=== PATIENT | female | born 2000 | race Caucasian/White ===

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

== ENCOUNTER 2019-02-15 21:34 | Emergency (ER) | payer OTHER ==
[2019-02-15 22:15] LABS: Pregnancy Test - Urine (BHCG) Negative (Negative); Pregu Control Background? CLEAR/WHITE (CLR/WHITE); Pregu Control Bar Appear? YES (CONTROL BAR); Specific Gravity 1.026 (1.002-1.036)
[2019-02-15 22:17] LABS: Bilirubin Negative (Negative); Blood, Urine 3+ (Negative); Clarity Clear (Clear); Glucose, Urine (Dipstick) Normal (Negative); Leukocyte 75 Leu/uL (Negative); Nitrite Negative (Negative); Protein, Urine (Dipstick) 20 mg/dL (Neg-Trace); RBC/HPF Greater than 50 HPF (0-3); Urobilinogen Normal mg/dL (Less than 2)
[2019-02-15 22:26] LABS: Bacteria/HPF None Seen HPF (None Seen); Mucous/LPF Rare LPF (<2+)
[2019-02-15] MEDS ORDERED: Ketorolac Tromethamine 60 MG/2 ML VIAL ONE (23:00)
[2019-02-15] MEDS ORDERED: cefTRIAXone\\ROCEPHIN 250 MG VIAL ONE (23:26)
[2019-02-15] MEDS ORDERED: Lidocaine 1% PF 5 ML VIAL ONE (23:29)
[2019-02-15] MEDS ORDERED: Azithromycin 250 MG TAB ONE (23:29)
== END 2019-02-15 23:56 | disposition home or self-care (01) ==
LOC: ERS 21:34
DX: N93.9 Abnormal uterine and vaginal bleeding, unspecified (principal)
CPT/HCPCS: 81003; 81015; 81025; 87086; 87480; 87491; 87510; 87591; 87660; 96372; 99284; J0696; J1885; J2001

== ENCOUNTER 2019-05-11 18:08 | Emergency (ER) | payer OTHER, SELFPAY ==
[2019-05-11 19:11] LABS: Bilirubin Negative (Negative); Blood, Urine Negative (Negative); Clarity Clear (Clear); Glucose, Urine (Dipstick) Normal (Negative); Leukocyte Negative Leu/uL (Negative); Nitrite Negative (Negative); Protein, Urine (Dipstick) Negative (Neg-Trace)
[2019-05-11 20:01] LABS: Pregnancy Test - Urine (BHCG) Negative (Negative); Pregu Control Background? CLEAR/WHITE (CLR/WHITE); Pregu Control Bar Appear? YES (CONTROL BAR); Specific Gravity 1.017 (1.002-1.036)
== END 2019-05-11 20:47 | disposition home or self-care (01) ==
LOC: ERS 18:08
DX: M54.6 Pain in thoracic spine (principal)
CPT/HCPCS: 81003; 81025; 99283

== ENCOUNTER 2019-10-16 21:17 | Emergency (ER) | payer OTHER, SELFPAY ==
[2019-10-16 21:56] LABS: Bacteria/HPF 2+ HPF (None Seen); Bilirubin Negative (Negative); Blood, Urine Negative (Negative); Clarity Clear (Clear); Glucose, Urine (Dipstick) Normal (Negative); Leukocyte 25 Leu/uL (Negative); Nitrite Negative (Negative); Protein, Urine (Dipstick) Negative (Neg-Trace); RBC/HPF 0-3 HPF (0-3); Squamous Epithelial 0-3 HPF (0-3); Urobilinogen Normal mg/dL (Less than 2); WBC/HPF 0-3 HPF (0-3)
[2019-10-16 22:11] LABS: #Eosinphils 0.2 thou/uL (0.0-0.7); #Lymphocytes 2.5 thou/uL (1.20-3.40); #Monocytes 0.6 thou/uL (0.11-0.59); #Neutrophils 6.8 thou/uL (1.40-6.50); %Basophils 0.3 % (0.0-1.0); %Lymphocytes 24.7 % (28.0-48.0); Hemoglobin 8.2 g/dL (12.0-16.0); Mean Corpuscular HGB CONC 31.9 g/dL (32.0-36.0); Mean Corpuscular Volume 65.9 fL (78.0-98.0); Mean Platelet Volume 8.8 fL (7.4-10.4); Platelet Count 186 thou/uL (130-400); RBC Distribution Width 18.7 % (11.5-14.5); Red Blood Cell (RBC) Count 3.89 mill/uL (4.00-5.20); White Blood Cell (WBC) Count 10.1 thou/uL (4.8-10.8)
[2019-10-16 22:32] LABS: ALT (SGPT) 10 U/L (8-55); AST (SGOT) 16 U/L (5-34); Albumin 4.1 g/dL (3.5-5.0); Alkaline Phosphatase 54 U/L (40-100); Anion Gap 11 mmol/L (10-20); BUN (Urea Nitrogen) 6 mg/dL (7.0-18.7); Bilirubin, Total 1.2 mg/dL (0.2-1.2); Calc. Creatinine Clearance 0 mL/min (70-130); Calcium 9.2 mg/dL (7.8-10.44); Carbon Dioxide 25 mmol/L (22-29); Chloride 105 mmol/L (98-107); Estimated GFR-MDRD Greater than 90; Glucose 95 mg/dL (70-105); Potassium 3.8 mmol/L (3.5-5.1); Protein, Total 7.1 g/dL (6.0-8.3); Sodium 137 mmol/L (136-145)
== END 2019-10-16 22:15 | disposition home or self-care (01) ==
LOC: ERS 21:17
DX: O99.89 Other specified diseases and conditions complicating pregnancy, childbirth and the puerperium (principal); R10.2 Pelvic and perineal pain; Z3A.19 19 weeks gestation of pregnancy
CPT/HCPCS: 36415; 80053; 81003; 81015; 84702; 85025; 99284

== ENCOUNTER 2020-02-09 19:26 | Day surgery (SDC) | payer OTHER ==
--- NOTE | 2020-02-09 19:58 | PDOC.FPROB ---
FMR OB H&P: HPI - History of Present Illness Chief Complaint: Chest pain History of Present Illness: Pt is a 19 yo at 36 wga by LMP confirmed with 9.5 wk sono here with complaints of CP and SOB. She states the episode happened earlier this evening around 1800 after she ate. She went to sit down and the chest pain started; 10/10 pressure in her epigastric area that radiated to her chest. The CP caused her to feel SOB and she felt anxious. The episode lasted about 30-35min. She had another episode like this last week that only lasted about 20-25 minutes. She has a hx of GERD and she states that her symptoms have been increasing but that this pain is different than her reflux. She also endorses increased panic attacks that are random, especially in the middle of the night. This episode she had today feels like her panic attacks, except for the fact that it lasted about 20 minutes longer. Sitting down makes the pain worse, focusing on her breathing and warm showers make it better. She denies any other symptoms like LOPEZ, vision changes, diaphoresis, N/V, dysuria, diarrhea, constipation, LOF, VB, VD. Baby is moving well. FMR OB H&P: Current - Care : 2 Para: 1 Gestational age: 36 Due date: 03/08/2020 Dating Criteria: LMP confirmed with 9.5wk sono - OB Labs Blood type: O RH: positive Antibody Screen: negative HIV: negative RPR: negative HepBsAg: negative Rubella: immune Gonorrhea: negative Chlamydia: negative 1 hour gtt: 86/110/99 A1c: 5.2 H&H: 7.1/23.3 Platelets: 200 FMR OB H&P: History - Past Medical History PMH: B Thalassemia - OB History OB History: Low lying placenta- 1.3 cm away from cervix on 12/04/19; OK for vaginal delivery if lower placental edge >20 mm from internal cervical os EFW 45% Previous delivery in 2018: Born via at 40wga complicated by 2nd degree perineal lac, gHTN, prolonged labor >20hours. 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: Menarche 11 yo LMP 06/02/2019 - Surgical History Sx History: Denies - Social History Social History: Denies - Family History Family History: Denies other than history of Beta thalassemia FMR OB H&P: Medications - Current Home Medications: Medication Instructions Recorded Confirmed Type Vit No.130/Iron/Folic 1 tab PO DAILY 02/12/17 02/09/20 History [ Tablet] Famotidine [Pepcid] 20 mg PO BID 30 Days #60 tab 02/09/20 Rx hydrOXYzine [Atarax] 25 mg PO PRN PRN 30 Days #120 tab 02/09/20 Rx Allergies/Adverse Reactions: Allergies Allergy/AdvReac Type Severity Reaction Status Date / Time No Known Allergies Allergy Verified 06/16/17 03:23 FMR OB H&P: ROS - Review of Systems General: denies: fever/chills, weight/appetite/sleep changes, fatigue Eyes: denies: vision changes Cardiovascular: reports: chest pain. denies: palpitation, edema Respiratory: reports: shortness of breath. denies: cough, congestion, exercise intolerance Gastrointestinal: denies: abdominal pain, indigestion, bloating, cramping, nausea, vomiting, diarrhea, constipation Genitourinary (Female): denies: dysuria, vaginal discharge, vaginal pain, vaginal bleeding, vaginal pressure Neurologic: denies: weakness, loss of counsciousness, headache Integumentary: denies: itching, rash Psychological: reports: anxiety FMR OB H&P: Vital Signs - Maternal Vital signs: Bp 110/76 HR 85 - Heart Tones Baseline: 130 Variability: moderate Acceleration: present Deceleration: absent Category: category 1 FMR OB H&P: Physical Exam - Physical Exam General: NAD, awake, alert and oriented HEENT: normocephalic and atraumatic, EOMI, MMM, conjunctiva clear Neck: supple, FROM Chest: non-tender to palpation Breast: symmetric, non-tender Heart: RRR, normal S1/S2, no murmurs/rubs/gallops, pulses present, no edema General: CTAB, no respiratory distress, good air movement Abdomen: soft, gravid, non-tender Musculoskeletal: pulses present, FROM in all four extremities Neurological: no focal deficit Skin: no rash, good tugor, capillary refill <2 seconds Lymphatic: no unusual bruising or bleeding Psychiatric: intact recent and remote memory, good judgement and insight, normal mood and affect FMR OB H&P: A/P Disposition: Pt is a 19 yo at 36 wga by LMP confirmed with 9.5 wk sono here with complaints of CP and SOB 1. Anxiety/Panic Attacks -episodes of CP with associated SOB feel the same as her panic attacks, just longer in duration -will send in Rx for Atarax PRN 2. -36wga by LMP confirmed with 1T sono -findings of low lying placenta followed by MFM: ok for vaginal delivery if 20mm from internal os -previous complaints of GERD on Pepcid 20 mg daily, will send in Rx for Pepcid 20mg BID as some of her pain could be 2/2 GERD 3. Beta thalassemia minor -aware, being monitored by [facility] Follow up with [facility] at next scheduled visit next week. ER labor precautions given. All questions and concerns addressed. Discussion: Date/Time: 02/09/201956 This H&P was discussed with Dr. Camacho and Dr. Dominguez who agree with the above documentation and plan. Addendum - Attending - Attending Attestation Date/Time: 02/09/20 0756 I personally evaluated the patient and discussed the management with Drs. Murphy and Doug. I agree with the History, Examination, Assessment and Plan documented above.
[2020-02-09 20:01] VITALS: BMI 39.5
== END 2020-02-09 21:10 | disposition home or self-care (01) ==
LOC: L&D/OP 19:26
PROVIDERS: ATTEND Obstetrics & Gynecology
DX: O99.891 Other specified diseases and conditions complicating pregnancy (principal); R07.9 Chest pain, unspecified; R06.02 Shortness of breath; O99.342 Other mental disorders complicating pregnancy, second trimester; F41.0 Panic disorder [episodic paroxysmal anxiety]; O44.43 Low lying placenta NOS or without hemorrhage, third trimester; O99.013 Anemia complicating pregnancy, third trimester; D56.3 Thalassemia minor; Z3A.36 36 weeks gestation of pregnancy

== ENCOUNTER 2020-02-15 11:19 | Inpatient (IN) | payer OTHER ==
[~2020-02-15 11:19] MED LIST: Bupivacaine 0.25% HCL 30 ML VIAL ONE; Bupivacaine/Epinephrine 0.25% 30 ML VIAL ONE
[2020-02-15] MEDS ORDERED: hydrALAZINE 20 MG/ML VIAL SLOW IVP PRN ×2 (12:36→14:49)
--- NOTE | 2020-02-15 12:38 | PDOC.FPROB ---
FMR OB H&P: HPI - History of Present Illness Chief Complaint: sent from [facility] History of Present Illness: 19yo at 36.6 WGA by LMP c/w 9.5w US. Presents from [facility] after having BPP there 08/07. Center was called and reported over phone points were taken off for basically no fluid and tone. Pt is asymptomatic and doing well with no complaints. She denies LOF/VB/discharge/contractions, endorses good mvmt. Primary Care Physician: Imelda Pozo FMR OB H&P: Current - Care : 2 Para: 1001 Gestational age: 36.3 Dating Criteria: LMP c/w 9.5w US Course/Complications: Placenta 1.3cm from cervix on November - OB Labs Blood type: O RH: positive Antibody Screen: negative HIV: negative RPR: negative HepBsAg: negative Rubella: immune Gonorrhea: negative Chlamydia: negative 1 hour gtt: 86/110/99 A1c: 5.2 GBS: unknown (collected yesterday) Platelets: 7.1/23.3 Additional labs: platelets: 200 FMR OB H&P: History - Past Medical History PMH: Anemia Beta Thalassemia - OB History OB History: Low lying placenta - 1.3cm from cervix on 12/04/2019. 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: LMP06/02/19 - Surgical History Sx History: none - Social History Social History: denies TAD - Family History Family History: b-thalassemia FMR OB H&P: Medications - Current Home Medications: Medication Instructions Recorded Confirmed Type Vit No.130/Iron/Folic 1 tab PO DAILY 02/12/17 02/15/20 History [ Tablet] Famotidine [Pepcid] 20 mg PO BID 30 Days #60 tab 02/09/20 02/15/20 Rx hydrOXYzine [Atarax] 25 mg PO PRN PRN 30 Days #120 tab 02/09/20 02/15/20 Rx Allergies/Adverse Reactions: Allergies Allergy/AdvReac Type Severity Reaction Status Date / Time No Known Allergies Allergy Verified 02/15/18 03:23 FMR OB H&P: ROS - Review of Systems General: denies: fever/chills, fatigue Eyes: denies: eye pain, vision changes ENT: denies: nasal congestion, rhinorrhea Cardiovascular: denies: chest pain, palpitation Respiratory: denies: cough, congestion Gastrointestinal: denies: abdominal pain, indigestion Genitourinary (Female): denies: incontinence, dysuria Musculoskeletal: denies: pain, stiffness Neurologic: denies: numbness, syncope Integumentary: denies: itching, rash Endocrine: denies: cold intolerance, heat intolerance Hematologic/Lymphatic: denies: prolonged or excessive bleeding Psychological: denies: depression, anxiety FMR OB H&P: Vital Signs - Maternal Vital signs: Vital Signs - First Documented Temp Resp 98.2 F 18 02/15/20 12:21 02/15/20 12:21 FMR OB H&P: Physical Exam - Physical Exam General: NAD, awake, alert and oriented HEENT: normocephalic and atraumatic, EOMI, MMM Neck: supple, trachea midline Chest: non-tender to palpation Breast: symmetric Heart: RRR, normal S1/S2 General: CTAB, no respiratory distress Abdomen: soft, gravid Musculoskeletal: pulses present, no misalignment/asymmetry, no atrophy Skin: no rash, good tugor Lymphatic: no unusual bruising or bleeding, no purpura Psychiatric: intact recent and remote memory, good judgement and insight FMR OB H&P: A/P - Problem List (1) Anemia in , delivered, current hospitalization Current Visit: No Status: Acute Code(s): O99.02 - ANEMIA COMPLICATING CHILDBIRTH Discussion: Date/Time: 02/15/20 1238 Pt is a 19 yo at 36.6 wga by LMP confirmed with 9.5 wk sono here with complaints of CP and SOB IUP, BPP 4/8 -called [facility] points taken off for basically no fluid and tone. -36.6wga by LMP confirmed with 1T sono -findings of low lying placenta followed by MFM: ok for vaginal delivery if 20mm from internal os. Will repeat US for placentation and presentation -plan to deliver vaginally if possible pending US results Anemia 2/2 Beta thalassemia minor -Hgb 7.1 in Late october. Pt was and is asymptomatic -aware, being monitored by [facility] Addendum - Attending - Attending Attestation Date/Time: 02/15/20 4010 I personally evaluated the patient and discussed the management with Dr. Canas. I agree with the History, Examination, Assessment and Plan documented above.
--- NOTE | 2020-02-15 13:43 | ULT ---
US OB Ltd History: Evaluate for presentation and placenta location Comparison: None. Findings: Real-time grayscale, color and spectral analysis of the gravid uterus was performed. Single viable intrauterine with cephalic presentation and poorly visualized likely posterio r placenta. Heart rate documented at 117 bpm. Minimal amniotic fluid. Impression: 1. Cephalic presentation. 2. Poorly visualized placenta with minimal amniotic fluid.
[2020-02-15] MEDS ORDERED: NS / Oxytocin 40 units/1000ml 1,000 ML IV PRN ×2 (14:43→19:29)
[2020-02-15] MEDS ORDERED: Lidocaine 1% (PF) 30 ML VIAL SC PRN ×2 (14:43→19:29)
[2020-02-15] MEDS ORDERED: Ondansetron PF 4 MG/2 ML Vial IVP PRN (14:49)
--- NOTE | 2020-02-15 15:05 | PDOC.LDPN ---
Labor & Delivery Progress Note - Subjective Subjective: comfortable - Objective General: NAD, resting Uterine fundus: non tender Dilation: 1 Effacement: 50% Station: -3 - Assessment (1) Anemia in , delivered, current hospitalization Code(s): O99.02 - ANEMIA COMPLICATING CHILDBIRTH Current Visit: No Status: Acute -: Spoke with [facility], Dr. Price, who verified that most recent US was 01/15/2020 and pts placenta was posterior and 3.8cm from cervix Cervix is not favorable. Considering questionable placenta will opt for OCT before trying cytotec. Addendum - Attending - Attending Attestation Date/Time: 02/15/20 0617 I personally evaluated the patient and discussed the management with Dr. Canas. I agree with the History, Examination, Assessment and Plan documented above.
[2020-02-15 15:58] VITALS: BMI 41.0
[2020-02-15 16:32] LABS: Hemoglobin 8.7 g/dL (12.0-16.0); Mean Corpuscular HGB CONC 33.2 g/dL (32.0-36.0); Mean Corpuscular Hemoglobin 22.3 pg (27.0-31.0); Mean Corpuscular Volume 67.2 fL (78.0-98.0); Mean Platelet Volume 9.2 fL (7.4-10.4); Platelet Count 169 thou/uL (130-400); RBC Distribution Width 16.9 % (11.5-14.5); White Blood Cell (WBC) Count 10.7 thou/uL (4.8-10.8)
[2020-02-15] MEDS: NS w/ Oxytocin 10 units 500 ML IV SCH (17:00)
[2020-02-15 17:04] LABS: HBSAg Index 0.19 S/CO (0-0.99); Hep B Surf Ag Non-Reactive S/CO (NonReactive)
[2020-02-15 17:05] LABS: Syphilis Antibody Nonreactive (Nonreactive); Syphilis Antibody Index 0.04 S/CO (<1.00 Non-Reactive)
--- NOTE | 2020-02-15 19:03 | PDOC.BPN ---
<Nereida Mari - Last Filed: 02/15/20 19:00> - Brief Progress Note Encounter Date: 02/15/20 Encounter Time: 19:00 Check s/p start of Pitocin administration for OCT. FHT cat 1 with baseline ~125, mod variability, accels, and no decels. BP 99-119/56/64. HR 71-88. She has had more than 3 ctx within 10 min and FHT remains cat 1, so we will stop Pitocin and start cytotec within 1 hr. Plan discussed with Dr. Dominguez, who agrees. <Manny Dominguez - Last Filed: 02/15/20 21:03> Addendum - Attending - Attending Attestation Date/Time: 02/15/202101 I personally evaluated the patient and discussed the management with Dr. Bar. I agree with the Assessment and Plan documented above.
[2020-02-15] MEDS: Butorphanol Tartrate 1 MG/ML VIAL SLOW IVP PRN (19:28)
[2020-02-15] MEDS ORDERED: Penicillin G Potassium 5 MILL.UNITS in Sodium Chloride 0.9% 100 ML IVPB SCH (19:30)
[2020-02-15] MEDS: Misoprostol 100 MCG TAB VAG SCH (20:28)
--- NOTE | 2020-02-15 22:41 | PDOC.BPN ---
<Nereida Mari - Last Filed: 02/16/20 00:22> - Brief Progress Note Encounter Date: 02/15/20 Encounter Time: 22:30 FHT check at 2100 s/p admin of cytotec at 2029. Cervical check at 2029: 40/-3 FHT: baseline ~125 with moderate variability, multiple accels, 1 early decel?, multiple variables at 2100? Vitals: BP 106-114/60. HR 63-73 Ctx q2-5min Pt endorsing significant pain with ctx and Stadol was given at 1940. Nurse is concerned the decels are 2/2 Stadol administration. Variables occurred while pt was laying flat on her back. The nurse repositioned her and gave her a fluid bolus and the variables resolved. The pt has not been on her back again and has not received Stadol again, and the variables have not repeated. This was discussed with Dr. Dominguez and he also inspected the strip. Since the FHT has returned to cat 1 and there were multiple variables that could have induced the decels, he is not concerned at this time. The plan is to administer a second dose of cytotec at about 0230 and recheck cervix at that time. <Manny Dominguez - Last Filed: 02/16/20 01:25> Addendum - Attending - Attending Attestation Date/Time: 02/16/20 0124 I personally evaluated the patient and discussed the management with Dr. Bar. I agree with the Assessment and Plan documented above.
[2020-02-16] MEDS: Meperidine HCl/PF 25 MG/ML VIAL SLOW IVP PRN ×2 (00:21→05:35)
[2020-02-16] MEDS: Promethazine HCl 25 MG/ML VIAL IM PRN ×2 (00:22→05:34)
[2020-02-16] MEDS: Penicillin G 2.5 MILL.units 2.5 MILL.UNITS in Premix Bag 1 BAG IVPB SCH ×4 (00:28→21:23)
--- NOTE | 2020-02-16 02:42 | PDOC.BPN ---
<Nereida Mari - Last Filed: 02/16/20 02:39> - Brief Progress Note Encounter Date: 02/16/20 Encounter Time: 02:35 Labor check: 2/75/-2, now mid-position and moderately firm Vitals: BP 107-120/54-65. HR 72-80. FHT continues to be cat 1 with baseline of ~130, moderate variability, several accels, no decels. Ctx are occurring q1-4min so we will not place another cytotec yet. If her ctx space out we will start pit. This was discussed with Dr. Dominguez, who agrees with the plan. <Manny Dominguez - Last Filed: 02/16/20 07:16> Addendum - Attending - Attending Attestation Date/Time: 02/16/20 0715 I personally evaluated the patient and discussed the management with Dr. Bar. I agree with the Assessment and Plan documented above.
[2020-02-16] MEDS: Butorphanol Tartrate 1 MG/ML VIAL SLOW IVP PRN (02:58)
[2020-02-16] MEDS: Lactated Ringer's 1,000 ML IV SCH ×4 (03:00→21:22)
--- NOTE | 2020-02-16 06:24 | PDOC.BPN ---
<Nereida aMri - Last Filed: 02/16/20 06:27> - Brief Progress Note Encounter Date: 02/16/20 Encounter Time: 06:00 Labor check: /-2 Ctx q1-3min Vitals: BP 100-122/60-99. HR 60-99 FHT cat 1: /-2 She has not yet had an epidural but has been complaining frequently of pain and she does desire an epidural so it will likely be given soon. She has only received one dose of cytotec at 2030 but was bacilio too often for another dose. The plan now is to start her on pitocin and recheck in about 4hrs. <Manny Dominguez - Last Filed: 02/16/20 07:17> Addendum - Attending - Attending Attestation Date/Time: 02/16/20 0716 I personally evaluated the patient and discussed the management with Dr. Bar. I agree with the Assessment and Plan documented above.
[2020-02-16] MEDS ORDERED: FLU VACC QS2020-21(6MOS UP)/PF 60 MCG/0.5 ML SYRINGE IM ONE (09:00)
[2020-02-16] MEDS ORDERED: Fentanyl 4 mcg/Bup 0.1% Cadd 100 ML ONE ×3 (09:12→21:49)
[2020-02-16] MEDS: Fentanyl 4 mcg/Bupivacaine 0.1% Cassette 100 ML EPIDURAL SCH ×3 (09:54→21:54)
--- NOTE | 2020-02-16 10:04 | PDOC.LDPN ---
Labor & Delivery Progress Note - Subjective Subjective: comfortable, no concerns - Objective Vital signs reviewed and normal: yes General: NAD Dilation: 2 Effacement: 75% (80) Station: -2 FHT: category 1, variability present [place] contractions every: 3-4min, spaced out to 2 every 10 min Plan: continue plan of care -: Pt is a 19 yo at 37 wga by LMP confirmed with 9.5 wk sono here who was sent over from [facility] for BPP 08/07 (decreased for tone and oligo). IUP, BPP 08/0750/-3 02/14 @ 1430 OTC test 02/14: 3cxn in 10 minutes, NST reactive, pit was stopped OCT started 1600, 3 cxn in 10 minutes, NST reactive, stop pit Cytotec given at 2030, Cat 1 140/-3 @ 2100, Cat 1 275/-2 @ 0230, Cat 1 280/-2 @ 0530 pit started at 0600 2/80/-2 @ 0845 pit at 2 FHTs: Cat I strip, moderate variability, + accels, - decels, bacilio every 3-5 min - plan to continue to titrate pit up as tolerated, will recheck in 2 hours, if cervical change, patient will get epidural and then plans to AROM and place IUPC afte epidural Anemia 2/2 Beta thalassemia minor -Hgb 7.1 in Late october. Pt was and is asymptomatic -Type and Screen and 2u ordered
[2020-02-16] MEDS ORDERED: diphenhydrAMINE 50 MG/ML VIAL IVP PRN (10:13)
[2020-02-16] MEDS ORDERED: Lactated Ringer's 500 ML IV PRN (10:13)
[2020-02-16] MEDS ORDERED: Ondansetron PF 4 MG/2 ML Vial IVP PRN (10:13)
[2020-02-16] MEDS ORDERED: EPHEDRINE 25 MG/5 ML SYRINGE SLOW IVP PRN (10:13)
[2020-02-16] MEDS ORDERED: Naloxone HCl 0.4 mg/ml Vial IVP PRN ×2 (10:13)
[2020-02-16] MEDS ORDERED: Promethazine HCl 25 MG/ML VIAL IM PRN (10:13)
[2020-02-16] MEDS ORDERED: Acetaminophen 325 MG TAB PO PRN (10:13)
[2020-02-16] MEDS ORDERED: Communication Order-Pharmacy FS SCH (10:15)
--- NOTE | 2020-02-16 11:38 | PDOC.LDPN ---
Labor & Delivery Progress Note - Subjective Subjective: comfortable - Objective General: NAD Dilation: 3 Effacement: 75% (80) Station: -2 FHT: category 1, variability present [place] contractions every: 3-4 min AROM: clear fluid IUPC placed: yes FSE placed: yes Plan: continue plan of care -: Pt is a 19 yo at 37 wga by LMP confirmed with 9.5 wk sono here who was sent over from [facility] for BPP 08/07 (decreased for tone and oligo). IUP, BPP 08/07 150/-3 02/14 @ 1430 OTC test 02/14: 3cxn in 10 minutes, NST reactive, pit was stopped OCT started 1600, 3 cxn in 10 minutes, NST reactive, stop pit Cytotec given at 2030, Cat 1 140/-3 @ 2100, Cat 1 275/-2 @ 0230, Cat 1 280/-2 @ 0530 pit started at 0600 280/-2 @ 0845 pit at 2 3/80/-2 @ 1115, AROM done and FSC and IUPC placed FHTs: Cat I strip, moderate variability, + accels, - decels, bacilio every 3-5 min - plan to continue augmentation of labor, continue to titrate pitocin, will recheck in 2 hours Anemia 2/2 Beta thalassemia minor -Hgb 7.1 in Late october. Pt was and is asymptomatic -Type and Screen and 2u ordered GBS Unknown Prior GBS negative -has received 3u pen G -stopped pen G now due to no risk factors. We will continue to monitor and restart if indicated
--- NOTE | 2020-02-16 13:22 | PDOC.LDPN ---
Labor & Delivery Progress Note - Subjective Subjective: comfortable - Objective Vital signs reviewed and normal: yes General: NAD Uterine fundus: non tender SVE: / FHT: category 1, variability present [place] contractions every: 2-3 mins Plan: continue plan of care, pitocin for augmentation -: Pt is a 19 yo at 37 wga by LMP confirmed with 9.5 wk sono here who was sent over from [facility] for BPP 08/07 (decreased for tone and oligo). IUP, BPP 08/07 150/-3 02/14 @ 1430 OTC test 02/14: 3cxn in 10 minutes, NST reactive, pit was stopped OCT started 1600, 3 cxn in 10 minutes, NST reactive, stop pit Cytotec given at 2030, Cat 1 1/40/-3 @ 2100, Cat 1 2/75/-2 @ 0230, Cat 1 2/80/-2 @ 0530 pit started at 0600 2/80/-2 @ 0845 pit at 2 3/80/-2 @ 1115, AROM done and FSC and IUPC placed 0 @1320-pit at 14 FHTs: Cat I strip, moderate variability, + accels, - decels, bacilio every 2-3 min - plan to continue augmentation of labor, continue to titrate pitocin, will recheck in 2 hours Anemia 2/2 Beta thalassemia minor -Hgb 7.1 in Late october. Pt was and is asymptomatic -Type and Screen and 2u ordered GBS Unknown Prior GBS negative -has received 3u pen G -stopped pen G now due to no risk factors. We will continue to monitor and restart if indicated
--- NOTE | 2020-02-16 15:17 | PDOC.LDPN ---
Labor & Delivery Progress Note - Subjective Subjective: comfortable - Objective Vital signs reviewed and normal: yes General: NAD Uterine fundus: non tender SVE: /0 FHT: category 1, variability present [place] contractions every: 2-3 mins, spaces out to 5-7 mins at times Plan: continue plan of care, pitocin for augmentation -: Pt is a 19 yo at 37 wga by LMP confirmed with 9.5 wk sono here who was sent over from [facility] for BPP 08/07 (decreased for tone and oligo). IUP, BPP 08/07 150/-3 02/14 @ 1430 OTC test 02/14: 3cxn in 10 minutes, NST reactive, pit was stopped OCT started 1600, 3 cxn in 10 minutes, NST reactive, stop pit Cytotec given at 2030, Cat 1 140/-3 @ 2100, Cat 1 275/-2 @ 0230, Cat 1 280/-2 @ 0530 pit started at 0600 2/80/-2 @ 0845 pit at 2 3/80/-2 @ 1115, AROM done and FSC and IUPC placed /0 @1320-pit at 14 5/90/0 @ 1515 - pit @ 18 FHTs: Cat I strip, moderate variability, + accels, - decels, bacilio every 2-3 min - plan to continue augmentation of labor, continue to titrate pitocin, will recheck in 2 hours Anemia 2/2 Beta thalassemia minor -Hgb 7.1 in Late october. Pt was and is asymptomatic -Type and Screen and 2u ordered GBS Unknown Prior GBS negative -has received 3u pen G -stopped pen G now due to no risk factors. We will continue to monitor and restart if indicated
[2020-02-16 15:46] LABS: SARS-CoV-2 MS2 Positive; SARS-CoV-2 N Gene Negative; SARS-CoV-2 S Gene Negative; SARS-CoV-2 by NAA Not Detected (NotDetected); SARS-CoV-2 orf1ab Negative
[2020-02-16] MEDS: Misoprostol 100 MCG TAB VAG SCH (19:07)
--- NOTE | 2020-02-16 19:27 | PDOC.LDPN ---
Labor & Delivery Progress Note - Subjective Subjective: comfortable - Objective Vital signs reviewed and normal: yes General: NAD Dilation: 6 Effacement: 90% Station: 0 FHT: category 1 [place] contractions every: 3-4 min IUPC placed: yes FSE placed: yes Plan: other (Faculty: Patient seen and OB care addressed) -: sIUP IOL 2/2 to BPP /8 on 02/14 - 1/50/-3 02/14 @ 1430 - OCT test 02/14: 3cxn in 10 minutes, NST reactive, pit was stopped - OCT started 1600, 3 cxn in 10 minutes, NST reactive, stop pit - Cytotec given at 2030, Cat 1 - /40/-3 @ 2100, Cat 1 - 75/-2 @ 0230, Cat 1 - 80/-2 @ 0530 - pit started at 0600 - 2/80/-2 @ 0845 pit at 2 - 3/80/-2 @ 1115, AROM done and FSC and IUPC placed - 4/90/0 @1320-pit at 14 - 5/90/0 @ 1515 - pit @ 18 - 6/90/0 @ 1715 - 6/90/0 @ 1900 pit @ 20, adequate contractions, adequate MVUs - FHTs: Cat I strip, baseline 130s, moderate variability, + accels, - decels - [place]co: q3-4 min - PLAN: will check again in 2 hours (2100), if unchanged with likely call failure to progress Anemia 2/2 Beta thalassemia minor -Hgb 7.1 in Late october. Pt was and is asymptomatic -Hgb 8.7 on admission -Type and Screen and 2u ordered GBS Unknown Prior GBS negative -has received 3u pen G -stopped pen G now due to no risk factors. We will continue to monitor and restart if indicated Plan discussed with Dr. Asif.
[2020-02-16] MEDS: NS w/ Oxytocin 10 units 500 ML IV SCH (19:54)
--- NOTE | 2020-02-16 21:52 | PDOC.LDPN ---
Labor & Delivery Progress Note - Subjective Subjective: comfortable - Objective Vital signs reviewed and normal: yes General: NAD Dilation: 7 Effacement: 90% Station: 0 FHT: category 1, early decelerations Bonnie contractions every: 3-4 min IUPC placed: yes -: sIUP IOL 2/2 to BPP 08/07 on 02/14 - 1/50/-3 02/14 @ 1430 - OCT test 02/14: 3cxn in 10 minutes, NST reactive, pit was stopped - OCT started 1600, 3 cxn in 10 minutes, NST reactive, stop pit - Cytotec given at 2030, Cat 1 - 40/-3 @ 2100, Cat 1 - 75/-2 @ 0230, Cat 1 - 80/-2 @ 0530 - pit started at 0600 - 80/-2 @ 0845 pit at 2 - /80/-2 @ 1115, AROM done and FSC and IUPC placed - /0 @1320-pit at 14 - /90/0 @ 1515 - pit @ 18 - 6/90/0 @ 1715 - 6/90/0 @ 1900 pit @ 20, adequate contractions, adequate MVUs - /90/0 @ 2100, cervix stripped with recheck /0, pit at 8 - FHTs: Cat I strip, baseline 130s, moderate variability, + accels, early decels, 1 variable decel - toco: q3-4 min - PLAN: will continue to monitor FHTs and check again in 2 hours (2300); if unchanged at this time, we will likely perform section for arrest of labor. Risks and benefits were discussed with patient. 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 Pt was and is asymptomatic -Hgb 8.7 on admission -Type and Screen and 2u ordered GBS Unknown Prior GBS negative -has received 3u pen G -stopped pen G now due to no risk factors. We will continue to monitor and restart if indicated Plan discussed with Dr. Asif.
[2020-02-16] MEDS: NS / Oxytocin 40 units/1000ml 1,000 ML IV SCH (23:08)
--- NOTE | 2020-02-16 23:18 | PDOC.OPDEL ---
OB Operative/Delivery Note Delivery Dr/Surgeon: Yefri Assist: None Pre-Delivery Diagnosis: active labor, medically indicated induction (Oligo with low BPP at 37 weeks 0 days; Beta Thal minor) Procedure/Post Delivery Dx: spontaneous vaginal delivery Weeks gestation: 37 Anesthesia: epidural - Additional Findings/Plan Placenta delivered: spontaneous (hancock at 2308; baby at 2304) Repaired Obstetrical Laceration: none Estimated blood loss: 300 (EBL only as not connected for QBL due to precipitous delivery in bed Compilations/Other Findings: I arrived just as baby was about to deliver. This was within 2 hrs from my last exam where I stripped her membranes. No NC. 3 vc on cord inspection. Placenta sent to path for oligo. baby with spont cry. No lacs. All counts correct Post delivery plan: routine recovery
[2020-02-16] MEDS ORDERED: Misoprostol 200 MCG TAB ONE (23:25)
[2020-02-16] MEDS ORDERED: Misoprostol 200 MCG TAB PR SCH (23:30)
--- NOTE | 2020-02-16 23:36 | PDOC.BPN ---
- Brief Progress Note Encounter Date: 02/16/20 Encounter Time: 23:30 Patient has passed some clots PVB. No persistent VB. Cytotec [address] Ross
[2020-02-17] MEDS ORDERED: Milk Of Magnesia 30 ML UDCUP PO PRN (00:42)
[2020-02-17] MEDS ORDERED: Bisacodyl 10 MG SUPP PR PRN (00:42)
[2020-02-17] MEDS ORDERED: hydrALAZINE 20 MG/ML VIAL SLOW IVP PRN (00:42)
[2020-02-17] MEDS: NS / Oxytocin 40 units/1000ml 1,000 ML IV SCH (01:12)
[2020-02-17] MEDS: Ibuprofen 800 MG TAB PO SCH ×3 (01:31→17:08)
[2020-02-17] MEDS: Misoprostol 100 MCG TAB VAG SCH (02:37)
[2020-02-17] MEDS: Penicillin G 2.5 MILL.units 2.5 MILL.UNITS in Premix Bag 1 BAG IVPB SCH (02:38)
[2020-02-17 06:48] LABS: #Lymphocytes 1.9 thou/uL (1.20-3.40); #Monocytes 0.8 thou/uL (0.11-0.59); #Neutrophils 10.3 thou/uL (1.40-6.50); %Basophils 0.2 % (0.0-1.0); %Eosinophils 0.3 % (0.0-10.0); %Lymphocytes 14.5 % (21.0-51.0); %Monocytes 6.1 % (0.0-10.0); %Neutrophils 78.9 % (42.0-75.0); Mean Corpuscular HGB CONC 32.8 g/dL (32.0-36.0); Mean Corpuscular Hemoglobin 22.2 pg (27.0-31.0); Mean Corpuscular Volume 67.8 fL (78.0-98.0); Mean Platelet Volume 10.3 fL (7.4-10.4); Platelet Count 151 thou/uL (130-400); RBC Distribution Width 16.9 % (11.5-14.5); Red Blood Cell (RBC) Count 3.61 mill/uL (4.20-5.40); White Blood Cell (WBC) Count 13.1 thou/uL (4.8-10.8)
--- NOTE | 2020-02-17 07:09 | PDOC.PP ---
Post Progress Note Post Day #: 1 Subjective: Pt doing well c/o 5/10 pelvic cramping pain, relieved with Advil and Tylenol. light lochia breast and bottle feeding still has urinary cath, was unable to take out last night after delivery due to unable to void passing gas. no other complaints PO intake tolerated: yes Flatus: yes Ambulation: yes Vital Signs (12 hours) Temp Pulse Resp BP Pulse Ox 02/17/20 03:45 98.1 F 83 16 108/59 L 02/17/20 02:45 98.1 F 67 16 111/59 L 02/17/20 01:37 98.8 F 102 H 16 117/58 L 98 Weight Weight 115.212 kg - Physical Examination General: NAD Cardiovascular: no m/r/g, RRR Respiratory: clear to auscultation bilaterally, non-labored breathing Abdominal: + bowel sounds, lochia, no distention, appropriately TTP Extremities: negative homans (B) Skin: no rash Neurological: no gross focal deficits Psychiatric: A&Ox3, normal affect Result Diagrams: 02/17/20 06:08 Additional Labs: Post Labs Hep Bs Antigen Non-Reactive S/CO (NonReactive) 02/15/20 16:20 Blood Type O POSITIVE 02/15/20 16:20 - Assessment/Plan 19 yo -> 2003 delivered via precipitous @ 37.0 wga by LMP confirmed with 9.5 wk sono PP day #1 - d/c urainary cath today -advance diet as tolerated - advil and tylenol fo rpain control - breast and bottle feeding - heating pad for pain control. 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 Pt was and is asymptomatic -aware, being monitored by [facility] - PP H/H: 8.0/24.0 - Stable, no s/s of symptomatic anemia Dispo: plan d/c home tomorrow
[2020-02-17] MEDS: Docusate Calcium (SURFAK) 240 MG CAP PO SCH (08:49)
[2020-02-17] MEDS: Ferrous Sulfate 325 MG TAB PO SCH ×2 (08:49→17:08)
[2020-02-17] MEDS ORDERED: Adacel (T-DAP) 0.5 ML SYRINGE IM ONE (09:00)
[2020-02-17] MEDS ORDERED: Sodium Chloride 0.9% 10 ML ONE (09:50)
[2020-02-18] MEDS: Ibuprofen 800 MG TAB PO SCH ×2 (01:00→09:43)
[2020-02-18] MEDS: Docusate Calcium (SURFAK) 240 MG CAP PO SCH ×2 (01:01→09:43)
[2020-02-18 07:34] VITALS: BP 131/73; TEMP 98.6
--- NOTE | 2020-02-18 07:36 | PDOC.PP ---
Post Progress Note Post Day #: 2 Subjective: v/s well no complaints per pt. bonding with infant well feels eager to return home. PO intake tolerated: yes Flatus: yes Ambulation: yes Vital Signs (12 hours) Temp Pulse Resp BP Pulse Ox 02/18/20 07:33 98.6 F 85 20 131/73 98 02/17/20 21:31 98.4 F 88 16 112/55 L Weight Weight 115.212 kg - Physical Examination General: NAD Cardiovascular: no m/r/g, RRR Respiratory: clear to auscultation bilaterally, non-labored breathing Abdominal: + bowel sounds, lochia, no distention, appropriately TTP Extremities: negative homans (B) Skin: no rash Neurological: no gross focal deficits Psychiatric: A&Ox3, normal affect Result Diagrams: 02/17/20 06:08 Additional Labs: Post Labs Hep Bs Antigen Non-Reactive S/CO (NonReactive) 02/15/20 16:20 Blood Type O POSITIVE 02/15/20 16:20 - Assessment/Plan 19 yo -> 2003 delivered via precipitous @ 37.0 wga by LMP confirmed with 9.5 wk sono PP day #2 - pt tolerated well and plannin gd/c home today. - advil and tylenol for pain control - breast and bottle feeding - heating pad for pain control. 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 Pt was and is asymptomatic -aware, being monitored by [facility] - PP H/H: 8.0/24.0 - Stable, no s/s of symptomatic anemia Dispo: plan d/c home today Addendum - Attending - Attending Attestation Date/Time: 02/19/20 [id number] I personally evaluated the patient and discussed the management with Dr. Pozo. I agree with the History, Examination, Assessment and Plan documented above.
[2020-02-18] MEDS: Ferrous Sulfate 325 MG TAB PO SCH (09:43)
== END 2020-02-18 11:45 | disposition home or self-care (01) | DRG 806 ==
LOC: L&D/OP 11:19 → L&D 18:57 → 3SW 02-17 02:12
PROVIDERS: ADMIT Obstetrics & Gynecology; ATTEND Obstetrics & Gynecology
PROC: 10E0XZZ Delivery of Products of Conception, External Approach (ICD-10-PCS; principal; 2020-02-16)
PROC: 10907ZC Drainage of Amniotic Fluid, Therapeutic from Products of Conception, Via Natural or Artificial Opening (ICD-10-PCS; 2020-02-16)
PROC: 3E033VJ Introduction of Other Hormone into Peripheral Vein, Percutaneous Approach (ICD-10-PCS; 2020-02-16)
DX: O99.02 Anemia complicating childbirth (principal); O41.03X0 Oligohydramnios, third trimester, not applicable or unspecified; Z37.0 Single live birth; D56.9 Thalassemia, unspecified; D64.89 Other specified anemias; Z20.828 Contact with and (suspected) exposure to other viral communicable diseases; Z3A.36 36 weeks gestation of pregnancy
CPT/HCPCS: 36415; 51702; 76815; 85025; 85027; 86780; 86850; 86870; 86900; 86901; 86905; 86922; 87340; 87635; 88307; 99285; J0595; J2175; J2540; J2550; J2590; J3490; S0020; U0003

== ENCOUNTER 2020-03-01 23:39 | Emergency (ER) | payer OTHER ==
[2020-03-02 00:45] LABS: BHCG - Serum Negative (NEGATIVE); Pregs Control Background? CLEAR/WHITE (CLR/WHITE); Pregs Control Bar Appear? YES (CONTROL BAR)
[2020-03-02 00:48] LABS: ALT (SGPT) 15 U/L (8-55); AST (SGOT) 22 U/L (5-34); Albumin 3.9 g/dL (3.5-5.0); Alkaline Phosphatase 88 U/L (40-110); Anion Gap 15 mmol/L (10-20); BUN (Urea Nitrogen) 13 mg/dL (7.0-18.7); Bilirubin, Total 1.2 mg/dL (0.2-1.2); Calc. Creatinine Clearance 0 mL/min (70-130); Calcium 8.8 mg/dL (7.8-10.44); Carbon Dioxide 23 mmol/L (22-29); Chloride 106 mmol/L (98-107); Estimated GFR-MDRD Greater than 90; Globulin 2.9 g/dL (2.4-3.5); Glucose 92 mg/dL (70-105); Lipase 22 U/L (8-78); Potassium 3.5 mmol/L (3.5-5.1); Protein, Total 6.8 g/dL (6.0-8.3); Sodium 140 mmol/L (136-145)
[2020-03-02 00:50] LABS: #Basophils 0.1 thou/uL (0.0-0.2); #Eosinphils 0.1 thou/uL (0.0-0.7); #Lymphocytes 3.2 thou/uL (1.20-3.40); #Monocytes 0.7 thou/uL (0.11-0.59); #Neutrophils 7.9 thou/uL (1.40-6.50); %Basophils 0.5 % (0.0-1.0); %Eosinophils 1.1 % (0.0-10.0); %Lymphocytes 27.2 % (21.0-51.0); %Monocytes 5.4 % (0.0-10.0); %Neutrophils 65.8 % (42.0-75.0); Mean Corpuscular HGB CONC 32.8 g/dL (32.0-36.0); Mean Platelet Volume 10.4 fL (7.4-10.4); Platelet Count 223 thou/uL (130-400); RBC Distribution Width 15.4 % (11.5-14.5); Red Blood Cell (RBC) Count 4.53 mill/uL (4.20-5.40); White Blood Cell (WBC) Count 11.9 thou/uL (4.8-10.8)
[2020-03-02] MEDS ORDERED: Ondansetron PF 4 MG/2 ML Vial ONE (00:51)
[2020-03-02] MEDS ORDERED: Lidocaine Viscous Sol 2% 15 ml UD Cup ONE (00:52)
[2020-03-02] MEDS ORDERED: Mag-Al 1200 mg/1200 mg/30 ML UDCUP ONE (00:52)
[2020-03-02 01:53] LABS: Bacteria/HPF 1+ HPF (None Seen); Bilirubin Negative (Negative); Blood, Urine 2+ (Negative); Clarity Clear (Clear); Glucose, Urine (Dipstick) Normal (Negative); Ketone, Urine Negative (Negative); Leukocyte 500 Leu/uL (Negative); Nitrite Negative (Negative); Protein, Urine (Dipstick) 20 mg/dL (Neg-Trace); Specific Gravity, Urine 1.032 (1.002-1.036); WBC/HPF Greater than 50 HPF (0-3)
== END 2020-03-02 01:10 | disposition home or self-care (01) ==
LOC: ERS 23:39
DX: N39.0 Urinary tract infection, site not specified (principal); D64.9 Anemia, unspecified
CPT/HCPCS: 80053; 81003; 81015; 83690; 84703; 85025; 87077; 87086; 87186; 96372; 96374; J0500; J2405

== ENCOUNTER 2020-04-04 07:12 | Outpatient (CLI) | payer OTHER ==
--- NOTE | 2020-04-04 08:57 | RAD ---
EXAM: Chest PA and lateral: HISTORY: Chronic fatigue COMPARISON: 11/11/2015 FINDINGS: Heart size:Within normal limits. Lungs:Clear of acute process. No confluent pneumonia, overt edema, pleural effusion, or other acute process. IMPRESSION: No significant acute intrathoracic disease.
--- NOTE | 2020-04-04 08:58 | RAD ---
EXAM: Abdomen one view: HISTORY: Epigastric pain COMPARISON: None FINDINGS: No evidence for large or small bowel obstruction. No free intraperitoneal air or extraluminal gas. No overt calculus. IMPRESSION: No acute process.
--- NOTE | 2020-04-04 09:14 | ULT ---
Exam: Pelvic ultrasound including Transabdominal, Transvaginal, And Vascular Duplex with color and spectral Doppler imaging: HISTORY: Generalized abdominal pain COMPARISON: None FINDINGS: The uterus is 9.3 x 5.4 x 7.0 cm Endometrial thickness:0.9 cm Right ovary:1.6 x 2.8 x 1.8 cm Left ovary:3.7 x 3.5 x 2.6 cm containing a follicle cyst measuring 2.5 x 3.1 x 3.3 cm. No abscess or significant abnormal fluid collection. Vascular duplex examination demonstrates no evidence for ovarian torsion IMPRESSION: 2.5 x 3.1 x 3.3 cm left ovarian follicle cyst.
--- NOTE | 2020-04-04 09:15 | ULT ---
COMPLETE ABDOMEN ULTRASOUND INDICATION: Generalized abdominal pain TECHNIQUE: Grayscale, color Doppler and spectral Doppler were obtained of the abdomen. COMPARISON: CT abdomen pelvis dated November 08, 2015 FINDINGS: Liver: Mild fatty infiltration. The liver measures 19.9 cm. Main portal vein: Patent with appropriate hepatopedal flow Pancreas: Visualized aspects appeared normal. Gallbladder: Multiple gallstones. No gallbladder wall thickening or pericholecystic fluid. Common bile duct:3.9 mm. Right kidney: The right kidney measured 11.0 x 3.9 x 5 cm. No focal renal lesion or hydronephrosis is evident. Left kidney: The left kidney measured 11.3 x 4.5 x 4.7 cm. No focal renal lesion or hydronephrosis is demonstrated. Aorta and IVC: Appeared within normal limits. Spleen: 13.5cm in length. No focal splenic lesion is evident. Free fluid: None. IMPRESSION: 1. Mild hepatosplenomegaly. Mild fatty infiltration of liver. 2. Cholelithiasis without sonographic evidence of acute cholecystitis.
== END 2020-04-04 07:13 | disposition home or self-care (01) ==
LOC: BICULT 07:12
PROVIDERS: ATTEND Family Medicine
DX: R10.84 Generalized abdominal pain (principal); R10.13 Epigastric pain; R53.82 Chronic fatigue, unspecified; D50.8 Other iron deficiency anemias; R16.2 Hepatomegaly with splenomegaly, not elsewhere classified; K80.20 Calculus of gallbladder without cholecystitis without obstruction; K76.0 Fatty (change of) liver, not elsewhere classified; N83.202 Unspecified ovarian cyst, left side
CPT/HCPCS: 71046; 74018; 76856; 93975

== ENCOUNTER 2020-10-21 13:35 | Outpatient (CLI) | payer OTHER | END 2020-10-21 13:36 | disposition home or self-care (01) | LOC: BICULT 13:35 | PROVIDERS: ATTEND Family Medicine | DX: O09.892 Supervision of other high risk pregnancies, second trimester (principal); Z3A.22 22 weeks gestation of pregnancy | CPT/HCPCS: 76805 ==

== ENCOUNTER 2021-11-25 18:59 | Emergency (ER) | payer OTHER ==
[2021-11-25] MEDS ORDERED: Ketorolac Tromethamine 30 MG/ML VIAL ONE (20:04)
== END 2021-11-25 20:25 | disposition home or self-care (01) ==
LOC: ERS 18:59
DX: M54.50 Low back pain, unspecified (principal)
CPT/HCPCS: 96372; 99283; J1885

== ENCOUNTER 2021-11-29 05:39 | Emergency (ER) | payer OTHER ==
[2021-11-29] MEDS ORDERED: Acetaminophen 500 MG TAB ONE (05:53)
[2021-11-29 06:31] LABS: Pregnancy Test - Urine (BHCG) Negative (Negative); Pregu Control Background? CLEAR/WHITE (CLR/WHITE); Pregu Control Bar Appear? YES (CONTROL BAR)
[2021-11-29 06:34] LABS: Specific Gravity 1.023 (1.002-1.036)
[2021-11-29 06:44] LABS: Bacteria/HPF None Seen HPF (None Seen); Bilirubin Negative (Negative); Blood, Urine Negative (Negative); Clarity Clear (Clear); Glucose, Urine (Dipstick) Normal (Negative); Ketone, Urine Negative (Negative); Leukocyte 25 Leu/uL (Negative); Nitrite Negative (Negative); Protein, Urine (Dipstick) Negative (Neg-Trace); RBC/HPF 0-3 HPF (0-3); Specific Gravity, Urine 1.025 (1.002-1.036); Squamous Epithelial 0-3 HPF (0-3); Urobilinogen Normal mg/dL (Less than 2); WBC/HPF 0-3 HPF (0-3)
[2021-11-29] MEDS ORDERED: predniSONE 20 MG TAB ONE (07:29)
== END 2021-11-29 07:36 | disposition home or self-care (01) ==
LOC: ERS 05:39
DX: M62.830 Muscle spasm of back (principal); D64.9 Anemia, unspecified; Z79.899 Other long term (current) drug therapy
CPT/HCPCS: 81003; 81015; 81025; 87077; 87086; 99283; J7512

== ENCOUNTER 2024-12-11 15:36 | Outpatient (CLI) | payer OTHER | END 2024-12-11 15:37 | disposition home or self-care (01) | LOC: ULT 15:36 | PROVIDERS: ATTEND Family Medicine | DX: Z34.82 Encounter for supervision of other normal pregnancy, second trimester (principal); Z3A.20 20 weeks gestation of pregnancy | CPT/HCPCS: 76805 ==

== ENCOUNTER 2025-03-18 08:29 | Day surgery (SDC) | payer OTHER ==
[~2025-03-18 08:29] MED LIST changes: -Bupivacaine 0.25% HCL 30 ML VIAL ONE; -Bupivacaine/Epinephrine 0.25% 30 ML VIAL ONE; +Iron Sucrose Complex 500 MG in Sodium Chloride 0.9% 250 ML 250 ML IVPB SCH
[2025-03-18] MEDS ORDERED: Acetaminophen 500 MG TAB ONE (08:39)
[2025-03-18] MEDS: Acetaminophen 500 MG TAB PO SCH (08:40)
[2025-03-18 15:33] VITALS: BP 102/60; TEMP 98.5
== END 2025-03-18 15:02 | disposition home or self-care (01) ==
LOC: ONC/OP 08:29
PROVIDERS: ATTEND Family Medicine
DX: O99.013 Anemia complicating pregnancy, third trimester (principal); O99.213 Obesity complicating pregnancy, third trimester; Z3A.33 33 weeks gestation of pregnancy; Z79.899 Other long term (current) drug therapy
CPT/HCPCS: 96365; 96366; J1756; J7050